=== PATIENT | male | born 1940 | race Caucasian/White ===

== ENCOUNTER 2017-02-08 08:44 | Day surgery (SDC) | payer OTHER ==
--- NOTE | ~2017-02-08 | EGD ---
EGD REPORT [facility] 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 Procedure: Pre-Anesthesia Assessment: - ASA Grade Assessment: III - A patient with severe systemic disease. After obtaining informed consent, the endoscope was passed under direct vision. Throughout the procedure, the patient's blood pressure, pulse, and oxygen saturations were monitored continuously. The GIF [id number] was introduced through the mouth, and advanced to the third part of duodenum. The upper GI endoscopy was accomplished without difficulty. The patient tolerated the procedure well. Findings: The examined esophagus was normal. There is no endoscopic evidence of Pickens's esophagus, areas of erosion, hiatus hernia, ulcerations, varices or mass in the entire esophagus. The z line is entirely regular using WL and NBI. Biopsies were taken with a cold forceps for histology. A guidewire was placed and the scope was withdrawn. Dilation was performed in the entire esophagus with a Savary dilator with no resistance at 57 Fr. Diffuse atrophic mucosa was found in the gastric body and in the gastric antrum. Biopsies were taken with a cold forceps for histology. No other significant abnormalities were identified in a careful examination of the stomach. There is no endoscopic evidence of ulceration, varices or stenosis in the entire examined stomach. The examined duodenum was normal. There is no endoscopic evidence of inflammation, mucosal abnormalities, stenosis or ulceration in the entire examined duodenum. The cardia and gastric fundus were normal on retroflexion. Impression: - Normal esophagus. - Gastric mucosal atrophy. Biopsied. EGD REPORT [address] [address] NAME: AGUSTÍN GROSSMAN JR : 42 STATUS : [place] [facility] [place]#: [id number] AGE: 76 ADM/REG DATE : 02/08/17 MR#: [id number] REPORT SERV DATE: 02/08/17 DICTATED BY: DATE: REPORT STATUS : Draft TRANSCRIBED BY: [employer] DATE: 02/08/17 - Normal examined duodenum. - Biopsies were taken with a cold forceps for histology. - Dilation attempted in the entire esophagus. Successful. Recommendation: - Patient has a contact number available for emergencies. The signs and symptoms of potential delayed complications were discussed with the patient. Return to normal activities tomorrow. Written discharge instructions were provided to the patient. - Return to previous diet. - Discharge patient to home. - Continue present medications. - Await pathology results. Procedure Code(s): --- Professional --- 23465, Esophagogastroduodenoscopy, flexible, transoral; with insertion of guide wire followed by passage of dilator(s) through esophagus over guide wire 02792, Esophagogastroduodenoscopy, flexible, transoral; with biopsy, single or multiple Diagnosis Code(s): --- Professional --- K22.70, Pickens's esophagus without dysplasia K31.89, Other diseases of stomach and duodenum R13.10, Dysphagia, unspecified CPT copyright 2013 [employer]. All rights reserved. The codes documented in this report are preliminary and upon glue clamp operator review may be revised to meet current compliance requirements. BARRINGTON BUTCHER MD 02/08/2017 11:03 AM This report has been signed electronically. Number of Addenda: 0 Note Initiated On: 02/08/2017 8:07 AM Scope Withdrawal Time 0 hours 0 minutes 0 seconds [id number] [place] [id number]
[~2017-02-08 08:44] MED LIST: APRES10B PO; AUG875 PO; CALAN40 MG PO; CRESTOR10 PO; ELIQUIS 2.5 MG2.5 MG PO; FLEX PO; FLOMAX4 PO; HCTZ12.5 PO; HYDROCHLOROT25 MG PO; ISORDIL10 PO; LEVOTHYROXIN125 MCG PO; LEVOTHYROXIN137 MCG PO; LEVOTHYROXIN150 MCG PO; LEVOTHYROXIN175 MCG PO; LISINOPRIL40 MG PO; LOP25 PO; NEXIUM40 PO; NITROSTAT0.4 MG SL; OTC ROLAIDS PO; OTC VITAMIN B-12 PO; PACERONE100 MG PO; PCET PO; PRILOSEC40 MG PO; SODBICAR10 PO; SPIRO25 PO; SYN1 PO; SYN125 PO; SYNTHROID200 MCG PO; TOPXL25 PO; TUMSROLL PO; V80 PO; VERAPAMIL ER; XARELTO15 MG PO; XARELTO20 MG PO; Z100 PO; Z300 PO; ZESTORETIC1 TA1 PO; ZESTRIL20 MG PO; ZOCOR20 PO; ZOCOR40 PO; ZOFRAN4 PO; Zyloprim
[2017-02-08 09:29] LABS: CALCIUM, SERUM 8.2 MG/DL (8.5-10.4); CHLORIDE, SERUM 114 MMOL/L (96-112); CO2 (CARBON DIOXIDE) 25 MMOL/L (24-34); CREATININE 2.14 MG/DL (0.70-1.30); GFR AFRICAN AMERICAN 34 ML/MIN (>=60); GFR NON AFRICAN AMERICAN 29 ML/MIN (>=60); GLUCOSE, SERUM 91 MG/DL (60-99); POTASSIUM, SERUM 4.7 MMOL/L (3.5-5.3); SODIUM, SERUM 142 MMOL/L (135-148)
[2017-02-08 09:30] LABS: BUN (BLOOD UREA NITROGEN) 33 MG/DL (6-23)
[2017-03-31] MEDS ORDERED: PRIN20 PO (22:56)
[2017-04-05] MEDS ORDERED: AUG875 PO (09:58)
[2017-04-05] MEDS ORDERED: NEO-OINT15 T (09:59)
[2017-04-08] MEDS ORDERED: APRES10B PO (09:55)
[2017-04-11] MEDS ORDERED: ELIQUIS 2.5 MG2.5 MG PO (09:26)
[2017-06-12] MEDS ORDERED: ZESTORETIC1 TA1 PO (09:37)
== END 2017-02-08 23:59 | disposition home or self-care (01) ==
LOC: DMU 08:44
PROVIDERS: Anesthesiology; Internal Medicine Gastroenterology
PROC: 0DB58ZX Excision of Esophagus, Via Natural or Artificial Opening Endoscopic, Diagnostic (ICD-10-PCS; 2017-02-08)
PROC: 0D758ZZ Dilation of Esophagus, Via Natural or Artificial Opening Endoscopic (ICD-10-PCS; principal; 2017-02-08 12:30)
PROC: 0DB68ZX Excision of Stomach, Via Natural or Artificial Opening Endoscopic, Diagnostic (ICD-10-PCS; 2017-02-08 12:30)
DX: K29.50 Unspecified chronic gastritis without bleeding (principal); K31.89 Other diseases of stomach and duodenum; I25.118 Atherosclerotic heart disease of native coronary artery with other forms of angina pectoris; I71.2 Thoracic aortic aneurysm, without rupture; I48.0 Paroxysmal atrial fibrillation; I12.9 Hypertensive chronic kidney disease with stage 1 through stage 4 chronic kidney disease, or unspecified chronic kidney disease; N18.4 Chronic kidney disease, stage 4 (severe); E78.5 Hyperlipidemia, unspecified; D64.9 Anemia, unspecified; M10.9 Gout, unspecified; E03.9 Hypothyroidism, unspecified; E78.00 Pure hypercholesterolemia, unspecified; N40.0 Benign prostatic hyperplasia without lower urinary tract symptoms; G47.33 Obstructive sleep apnea (adult) (pediatric); Z95.1 Presence of aortocoronary bypass graft; Z79.01 Long term (current) use of anticoagulants
CPT/HCPCS: 80048; 88305